=== PATIENT | male | born 1985 | race Caucasian/White ===

== ENCOUNTER 2023-01-18 11:29 | Outpatient (OUT) | payer BC, SELFPAY ==
[2023-01-18 12:17] LABS: Thyroid Stimulating Hormone 0.264 uIU/mL (0.358-3.740)
[2023-01-18 12:36] LABS: Free T4 1.21 ng/dL (0.76-1.46)
== END 2023-01-18 11:30 | disposition home or self-care (01) ==
LOC: LAB 11:32
PROVIDERS: PCP Family Medicine; Visit Provider Family Medicine
DX: E03.8 Other specified hypothyroidism (principal)
CPT/HCPCS: 36415; 84439; 84443

== ENCOUNTER 2023-07-07 06:23 | Outpatient (OUT) | payer BC, SELFPAY ==
[2023-07-07 07:35] LABS: Free T4 1.09 ng/dL (0.76-1.46)
[2023-07-07 07:38] LABS: Alanine Aminotransferase 38 U/L (16-63); Albumin Globulin Ratio 0.9; Albumin Level 3.1 g/dL (3.4-5.0); Alkaline Phosphatase 62 U/L (46-116); Anion Gap 10.6; Aspartate Amino Transferase 14 U/L (15-37); BUN Creatinine Ratio 27.1; Bilirubin Total 0.2 mg/dL (0.2-1.0); Calcium 8.5 mg/dL (8.5-10.1); Carbon Dioxide 29.8 mmol/L (21.0-32.0); Chloride 107 mmol/L (98-107); Chol HDL Ratio 3.4; Cholesterol 128 mg/dL (<=200); Estimated GFR (African America >60 (>=60); Estimated GFR (Non-African Ame >60 (>=60); Globulin 3.4 g/dL; Glucose 92 mg/dL (74-106); HDL Cholesterol 38 mg/dL (40-60); Potassium 4.4 mmol/L (3.5-5.1); Sodium 143 mmol/L (136-145); Thyroid Stimulating Hormone 1.785 uIU/mL (0.358-3.740); Total Protein 6.5 g/dL (6.4-8.2); Triglycerides 149 mg/dL (<=150); VLDL CHOLESTEROL 29.8 mg/dL
== END 2023-07-07 06:24 | disposition home or self-care (01) ==
LOC: LAB 06:24
PROVIDERS: PCP Family Medicine; Visit Provider Family Medicine
DX: E03.9 Hypothyroidism, unspecified (principal); E78.2 Mixed hyperlipidemia
CPT/HCPCS: 36415; 80053; 80061; 84439; 84443

== ENCOUNTER 2024-07-31 08:48 | Outpatient (OUT) | payer OTHER, SELFPAY ==
--- OUTSIDE RECORDS SUMMARY | 2024-07-31 08:53 | XMS_ITS | CCD ---
Author Organization [facility] Care Team Providers Care Survey Engineer Name Role Phone Ellen Barclay Unavailable Unavailable KEISHA, ELLEN Unavailable Unavailable Kovesdi, Ellen Unavailable Unavailable Kovesdi, Ellen Unavailable Unavailable KEISHA, ELLEN Unavailable Unavailable Kovesruperto, Ellen Unavailable Unavailable KEISHA, ELLEN Unavailable Unavailable DONNA LECHUGA AM Attending Unavailable DONNA LECHUGA AM Admitting Unavailable SELF, REFERRED Primary Care Unavailable JAMAL LUTZ Referring Unavailable MUNDO MODI Attending Unavailable MUNDO MODI Admitting Unavailable REQUEST, NONE LISTED Primary Care UnavailMUNDO Gandhi Attending Unavailable MUNDO MODI Admitting Unavailable REQUEST, NONE LISTED Primary Care UnavailMUNDO Gandhi Attending Unavailable MUNDO MODI Consulting Unavailable Courtney Cantu Unavailable Medications Current Medications Medication Drug Class(es) Dates Sig (Normalized) Sig (Original) amoxicillin 500 mg oral capsule (3 sources) Penicillin-class Antibacterial Start: 07-27-2024 take 1 capsule by mouth three times daily Amoxicillin 500 mg capsule Active 500 MG PO Three times daily 27 12July 27, 2024 12:00am Start: 07-01-2023 take 1 capsule by [facility] every eight hours Amoxicillin 500 MG 1 capsule Orally every 8 hrs for 5 day(s) Jun, Active predniSONE 20 mg oral tablet (1 source) Start: 07-01-2023 take 2 tablets by mouth every twenty-four hours predniSONE 20 MG 2 tablets Orally Once a day for 5 days Jun, Active sildenafil 50 mg oral tablet (12 sources) Phosphodiesterase 5 Inhibitor Start: 05-04-2024 End: 07-29-2024 take 1 tablet by mouth once daily as needed Sildenafil 50 mg tablet Active 0 .ROUTE .COMPLEX July 29, 2024 3:53pm TAKE 1 TABLET BY MOUTH ONCE A DAY 30 MINUTES TO 4 HOURS BEFORE SEXUAL ACTIVITY NEEDED Start: 08-21-2023 End: 05-04-2024 Sildenafil 50 mg tablet Disc ontinued 50 MG PO Daily as needed for sexual activity October 02, 2023 3:17pm May 04, 2024 8:30am administer 30 minutes to 4 hours before activity Sildenafil Citra te 50 mg TAKE ONE TABLET BY MOUTH ONCE DAILY NEEDED FOR 30 DAYS for 30 Active Completed/Discontinued Medications Medication Drug Class(es) Dates Sig (Normalized) Sig (Original) atorvastatin 20 mg oral tablet (20 sources) HMG-CoA Reductase Inhibitor Start: 12-22-2023 End: 07-21-2024 take 1 tablet by mouth once daily Atorvastatin 20 mg tablet Discontinued 0 .ROUTE .COMPLEX March 22, 2024 9:33pm July 21, 2024 8:31am TAKE 1 TABLET BY MOUTH EVERY DAY Start: 08-26-2023 End: 12-22-2023 take 1 tablet by mouth once daily Atorvastatin 20 mg tablet Discontinued 20 MG PO Daily August 26, 2023 8:32am December 22, 2023 8:59am Start: 08-21-2023 End: 08-26-2023 take 1 tablet by mouth once daily Atorvastatin 20 mg tablet Discontinued 0 .ROUTE .COMPLEX August 21, 2023 11:02am August 26, 2023 8:33am TAKE ONE TABLET BY MOUTH ONCE DAILY FOR 30 DAYS Start: 08-21-2023 End: 08-26-2023 take 1 tablet by mouth once daily Atorvastatin Discontinued 0 .ROUTE .COMPLEX August 21, 2023 12:02pm August 26, 2023 9:33am TAKE ONE TABLET BY MOUTH ONCE DAILY FOR 30 DAYS Start: 08-21-2023 End: 08-21-2023 take 1 tablet by mouth once daily Atorvastatin 20 mg tablet Discontinued 20 MG PO Daily August 20, 2023 11:00pm August 21, 2023 11:02am Start: 11-13-2022 take 1 tablet by [facility] every twenty-four hours Atorvastatin Calcium 20 MG 1 tablet Orally Once a day for 30 days Nov, Active levothyroxine sodium 0.088 mg oral tablet (20 sources) l-Thyroxine Start: 12-22-2023 End: 07-21-2024 Levothyroxine 88 mcg tablet Discontinued 0 .ROUTE .COMPLEX March 22, 2024 9:33pm July 21, 2024 8:31am TAKE 1 TABLET EACH MORNING ON AN EMPTY STOMACH Start: 08-26-2023 End: 12-22-2023 take 1 tablet by mouth once daily Levothyroxine 88 mcg tablet Discontinued 88 MCG PO Daily August 26, 2023 8:32am December 22, 2023 8:59am Start: 08-21-2023 End: 08-26-2023 take 1 tablet by mouth once daily in the morning Levothyroxine 88 mcg tablet Discontinued 0 .ROUTE .COMPLEX August 21, 2023 11:02am August 26, 2023 8:33am TAKE ONE TABLET BY MOUTH ONCE DAILY IN THE MORNING ON AN EMPTY STOMACH Start: 08-21-2023 End: 08-21-2023 take 1 tablet by mouth once daily Levothyroxine 88 mcg tablet Discontinued 88 MCG PO Daily August 20, 2023 11:00pm August 21, 2023 11:02am Start: 11-13-2022 take 1 tablet by [facility] once daily in the morning Levothyroxine Sodium 100 MCG 1 tablet in the morning on an empty stomach Orally Once a day for 30 days Nov, Active take 1 tablet by [facility] once daily in the morning Levothyroxine Sodium 88 MCG 1 tablet in the morning on an empty stomach Orally Once a day for 90 days Active take 1 tablet by [facility] once daily in the morning Levothyroxine Sodium 88 MCG 1 tablet in the morning on an empty stomach Orally Once a day for 90 days Active meloxicam 15 mg oral tablet (16 sources) Nonsteroidal Anti-inflammatory Drug Start: 10-02-2023 End: 05-31-2024 take 1 tablet by mouth once daily Meloxicam 15 mg tablet Discontinued 0 .ROUTE .COMPLEX March 01, 2024 12:12pm May 31, 2024 9:31pm TAKE 1 TABLET BY MOUTH EVERY DAY FOR 30 DAYS Start: 07-28-2023 End: 07-29-2024 take 1 tablet by mouth once daily Meloxicam 15 mg tablet Discontinued 15 MG PO Daily August 20, 2023 11:00pm October 02, 2023 3:18pm Start: 07-01-2023 take 1 tablet by [facility] every twenty-four hours Meloxicam 15 MG 1 tablet Orally Once a day for 30 day(s) Jun, Active ondansetron 4 mg disintegrating oral tablet (3 sources) Serotonin-3 Receptor Antagonist Start: 10-20-2023 End: 07-29-2024 take 1 tablet by mouth every eight hours as needed for nausea and vomiting Ondansetron 4 mg tablet,disintegrating Discontinued 4 MG PO Q8H as needed for nausea and vomiting October 19, 2023 11:00pm July 29, 2024 3:52pm Problems Problem Classification Problem Date Documented Date Episodic/Chronic Cardiac dysrhythmias (2 sources) Palpitations; Translations: [Palpitations] Onset: 11-01-2022 Episodic Conditions associated with dizziness or vertigo (2 sources) Dizziness and giddiness; Translations: [Dizziness and giddiness] Onset: 11-01-2022 Episodic Coronary atherosclerosis and other heart disease (7 sources) Coronary arteriosclerosis; Translations: [Atherosclerotic heart disease of [place] coronary artery without angina pectoris] Chronic Disorders of lipid metabolism (10 sources) Mixed hyperlipidemia; Translations: [Mixed hyperlipidemia] Chronic Disorders of teeth and jaw (2 sources) Periapical abscess without sinus; Translations: [Other specified disorders of teeth and supporting structures] Episodic Essential hypertension (9 sources) Essential hypertension; Translations: [Essential (primary) hypertension] Chronic Noninfectious gastroenteritis (2 sources) Gastroenteritis; Translations: [Noninfective gastroenteritis and colitis, unspecified] 10-20-2023 Episodic Nonspecific chest pain (2 sources) Chest pain, unspecified; Translations: [Chest pain, unspecified] Onset: 11-01-2022 Episodic Other connective tissue disease (1 source) Myalgia, other site Episodic Other lower respiratory disease (2 sources) Shortness of breath; Translations: [Shortness of breath] Onset: 11-01-2022 Episodic Other male genital disorders (4 sources) Male erectile dysfunction, unspecified; Translations: [Erectile dysfunction, unspecified erectile dysfunction type] Chronic Residual codes; unclassified (2 sources) Sleep apnea, unspecified; Translations: [Sleep apnea, unspecified] Onset: 11-01-2022 Chronic Residual codes; unclassified (6 sources) Obstructive sleep apnea syndrome; Translations: [Obstructive sleep apnea (adult) (pediatric)] Chronic Residual codes; unclassified (1 source) Obstructive sleep apnea (adult) (pediatric) Chronic Thyroid disorders (16 sources) Acquired hypothyroidism; Translations: [Hypothyroidism, unspecified] Chronic Results Test Name Value Interpretation Reference Range Facility 36on 11-06-2022 36 Please let him know his blood counts, kidney/liver function were all normal. His cholesterol levels shows his bad cholesterol or LDL was at 125 which is above goal of <100 for primary prevention. Recommend limiting processed foods, eating low fat/heart healthy diet, and getting into an exercise routine after his sx's improve and he undergoes testing that we ordered. His TSH level which is part of his thyroid function is low and may require further investigation that he needs to see a PCP for. Please be sure he has scheduled an appt to get into a PCP as I had given him a list of providers to try to get into and fax results to them. Thank you! Normal [facility] Telephoneon 11-05-2022 Telephone [id number] BritIván M 1985 M Date Provider Department Center 11/05/2022 MUNDO MACHADO [facility] Family History Problem Relation Age of Onset Heart attack Maternal Grandmother Heart attack Maternal Grandfather Family Status - Relation Status Age at Maternal Grandmother Maternal Grandfather Normal [facility] CBC AUTO DIFFon 11-02-2022 BASO # 0.0 103/ul Normal 0.0-0.1 [facility] Comment on above: Performed By: #### C BC #### [facility] [address] [address] [address] Nicole Bullard Basophils/100 WBC (Bld) 0.5 % Normal 0.2-2.[address] [facility] Comment on above: Performed By: #### C BC #### [facility] [address] [address] [address] Nicole Bullard EO # 0.2 103/ul Normal 0.0-0.[address] [facility] Comment on above: Performed By: #### C BC #### [facility] [address] [address] [address] Nicole Bullard Eosinophils/100 WBC (Bld) 2.6 % Normal 0.9-7.0 [facility] Comment on above: Performed By: #### C BC #### [facility] [address] [place] [address] Dr. Nicole Bullard Erythrocyte distribution width (RBC) [Ratio] 13.0 % Normal 11.0-15.[address] [facility] Comment on above: Performed By: #### C BC #### [facility] [address] [place] [address] Dr. Nicole Bullard Hematocrit (Bld) [Volume fraction] 46.5 % Normal 42.0-54.0 [facility] Comment on above: Performed By: #### C BC #### [facility] [address] [place] [address] Dr. Nicole Bullard Hemoglobin (Bld) [Mass/Vol] 15.4 g/dL Normal 14.0-18.[address] [facility] Comment on above: Performed By: #### C BC #### [facility] [address] [place] [address] Dr. Nicole Bullard IG # 0.02 10e3/ul Normal 0.00-0.03 [facility] Comment on above: Performed By: #### C BC #### [facility] [address] [place] [address] Dr. Nicole Bullard IG % 0.2 % Normal 0.0-0.5 [facility] Comment on above: Performed By: #### C BC #### [facility] [address] [place] [address] Dr. Nicole Bullard LYMPH # 2.4 103/ul Normal 1.2-3.[address] [facility] Comment on above: Performed By: #### C BC #### [facility] [address] [place] [address] Dr. Nicole Bullard Lymphocytes/100 WBC (Bld) 28.9 % Normal 20.5-60.[address] [facility] Comment on above: Performed By: #### C BC #### [facility] [address] [place] [address] Dr. Nicole Bullard MANUAL DIFF REQ NO Normal [facility] Comment on above: Performed By: #### C BC #### [facility] [address] [place] [address] Dr. Nicole Bullard MCH (RBC) [Entitic mass] 30.4 pg Normal 25.9-34.0 [facility] Comment on above: Performed By: #### C BC #### [facility] [address] [place] [address] Dr. Nicole Bullard MCHC (RBC) [Mass/Vol] 33.1 g/dL Normal 29.9-35.2 [facility] Comment on above: Performed By: #### C BC #### [facility] [address] [place] [address] Dr. Nicole Bullard MCV (RBC) [Entitic vol] 91.7 fL Normal 80.0-94.0 [facility] Comment on above: Performed By: #### C BC #### [facility] [address] [place] [address] Dr. Nicole Bullard MONO # 0.7 103/ul Normal 0.3-0.8 [facility] Comment on above: Performed By: #### C BC #### [facility] [address] [place] [address] Dr. Nicole Bullard Monocytes/100 WBC (Bld) 7.8 % Normal 1.7-12.0 [facility] Comment on above: Performed By: #### C BC #### [facility] [address] [place] [address] Dr. Nicole Bullard NEUT # 5.0 103/ul Normal 1.4-6.5 [facility] Comment on above: Performed By: #### C BC #### [facility] [address] [place] [address] Dr. Nicole Bullard Neutrophils/100 WBC (Bld) 60.0 % Normal 43.0-75.[address] [facility] Comment on above: Performed By: #### C BC #### [facility] [address] [place] [address] Dr. Nicole Bullard Platelet mean volume (Bld) [Entitic vol] 10.2 fL Normal 9.5-13.5 [facility] Comment on above: Performed By: #### C BC #### [facility] [address] [place] [address] Dr. Nicole Bullard PLT 197 103/ul Normal 150-450 [facility] Comment on above: Performed By: #### C BC #### [facility] [address] [place] [address] Dr. Nicole Bullard RBC 5.07 106/ul Normal 4.70-6.10 [facility] Comment on above: Performed By: #### C BC #### [facility] [address] [place] [address] Dr. Nicole Bullard WBC 8.4 103/ul Normal 4.0-11.0 [facility] Comment on above: Performed By: #### C BC #### [facility] [address] [place] [address] Dr. Nicole Bullard FREE T4on 11-02-2022 Free T4 [Mass/Vol] 1.01 ng/dL Normal 0.76-1.46 [facility] Comment on above: Performed By: #### F T4 #### [facility] [address] [place] [address] Dr. Nicole Bullard GLYCOHEMOGLOBIN A1Con 2022 ADA RECOMMENDATION SEE BELOW Normal [facility] Comment on above: Result Comment: ADA RECOMMENDED LIMIT 4.0 - 6.0 ADA THERAPEUTIC TARGET < 7.0 ACTION SUGGESTED > 7.0 Performed By: #### A 1C #### [facility] [address] [place] [address] Dr. Nicole Bullard Glucose [Mass/Vol] 126 mg/dL Normal [facility] Comment on above: Performed By: #### A 1C #### [facility] [address] [place] [address] Dr. Nicole Bullard HbA1c (Bld) [Mass fraction] 6.0 % Normal 4.5-6.2 [facility] Comment on above: Performed By: #### A 1C #### [facility] [address] [place] [address] Dr. Nicole Bullard LIPID PROFILEon 11-02-2022 CHOL-HDL RATIO NORM SEE BELOW Normal [facility] Comment on above: Result Comment: 3.3 - 4.4 LOW RISK 4.4 - 7.1 AVERAGE RISK 7.1 - 11.0 MODERATE RISK >11.0 HIGH RISK Performed By: #### T SH, CMP, LIPID, MG #### [facility] [address] [address] [address] Nicole Bullard Cholesterol [Mass/Vol] 185 mg/dL Normal <=200 [facility] Comment on above: Performed By: #### T SH, CMP, LIPID, MG #### [facility] [address] [address] [address] Nicole Bullard Cholesterol in HDL [Mass/Vol] 34 mg/dL Critically low 40-60 [facility] Comment on above: Performed By: #### T SH, CMP, LIPID, MG #### [facility] [address] [place] [address] Dr. Nicole Bullard Cholesterol in LDL [Mass/Vol] 125.8 mg/dL Normal [facility] Comment on above: Performed By: #### T SH, CMP, LIPID, MG #### [facility] [address] [place] [address] Dr. Nicole Bullard Cholesterol.total/Cho lesterol in HDL [Mass ratio] 5.4 {ratio} Normal [facility] Comment on above: Performed By: #### T SH, CMP, LIPID, MG #### [facility] [address] [place] [address] Dr. Nicole Bullard HDL NORMAL > or = 60 mg/dl - LOW CARDIOVASCULAR RISK <40 mg/dl - HIGH CARDIOVASCULAR RISK Normal [facility] Comment on above: Performed By: #### T SH, CMP, LIPID, MG #### [facility] [address] [place] [address] Dr. Nicole Bullard LDL CALC NORMAL SEE BELOW Normal [facility] Comment on above: Result Comment: <100 mg/dl OPTIMAL 100 - 129 mg/dl NEAR OR ABOVE OPTIMAL 130 - 159 mg/dl BORDERLINE HIGH 160 - 189 mg/dl HIGH >190 mg/dl VERY HIGH Performed By: #### T SH, CMP, LIPID, MG #### [facility] [address] [address] [address] Nicole Bullard Triglyceride [Mass/Vol] 126 mg/dL Normal <=[address] [facility] Comment on above: Performed By: #### T SH, CMP, LIPID, MG #### [facility] [address] [address] [address] Nicole Bullard VLDL CALC 25.2 mg/dL Normal [facility] Comment on above: Performed By: #### T SH, CMP, LIPID, MG #### [facility] [address] [address] [address] Nicole Bullard MAGNESIUMon 11-02-2022 Magnesium [Mass/Vol] 2.1 mg/dL Normal 1.8-2.4 [facility] Comment on above: Performed By: #### T SH, CMP, LIPID, MG #### [facility] [address] [place] [address] Dr. Nicole Bullard PROF 14(COMP METB)on 023 Albumin [Mass/Vol] 3.8 g/dL Normal 3.4-5.0 [facility] Comment on above: Performed By: #### T SH, CMP, LIPID, MG #### [facility] [address] [place] [address] Dr. Nicole Bullard Albumin/Globulin [Mass ratio] 0.9 {ratio} Normal [facility] Comment on above: Performed By: #### T SH, CMP, LIPID, MG #### [facility] [address] [place] [address] Dr. Nicole Bullard ALP [Catalytic activity/Vol] 68 U/L Normal 46-116 [facility] Comment on above: Performed By: #### T SH, CMP, LIPID, MG #### [facility] [address] [place] [address] Dr. Nicole Bullard ALT [Catalytic activity/Vol] 55 U/L Normal 16-63 [facility] Comment on above: Performed By: #### T SH, CMP, LIPID, MG #### [facility] [address] [place] [address] Dr. Nicole Bullard Anion gap [Moles/Vol] 11.4 mmol/L Normal [facility] Comment on above: Performed By: #### T SH, CMP, LIPID, MG #### [facility] [address] [address] [address] Nicole Bullard AST [Catalytic activity/Vol] 28 U/L Normal 15-37 [facility] Comment on above: Performed By: #### T SH, CMP, LIPID, MG #### [facility] [address] [address] [address] Nicole Bullard Bilirubin [Mass/Vol] 0.4 mg/dL Normal 0.2-1.0 [facility] Comment on above: Performed By: #### T SH, CMP, LIPID, MG #### [facility] [address] [address] [address] Nicole Bullard Calcium [Mass/Vol] 9.2 mg/dL Normal 8.5-10.1 [facility] Comment on above: Performed By: #### T SH, CMP, LIPID, MG #### [facility] [address] [address] [address] Nicole Bullard Chloride [Moles/Vol] 103 mmol/L Normal 98-[address] [facility] Comment on above: Performed By: #### T SH, CMP, LIPID, MG #### [facility] [address] [address] [address] Nicole Bullard CO2 [Moles/Vol] 31.4 mmol/L Normal 21.0-32.0 [facility] Comment on above: Performed By: #### T SH, CMP, LIPID, MG #### [facility] [address] [address] [address] Nicole Bullard Creatinine [Mass/Vol] 0.89 mg/dL Normal 0.70-1.30 [facility] Comment on above: Performed By: #### T SH, CMP, LIPID, MG #### [facility] [address] [place] [address] Dr. Nicole Bullard EGFR-AF CANADIAN >60 Normal >=60 [facility] Comment on above: Performed By: #### T SH, CMP, LIPID, MG #### [facility] [address] [address] [address] Nicole Bullard EGFR-NON AF CANADIAN >60 Normal >=[address] [facility] Comment on above: Performed By: #### T SH, CMP, LIPID, MG #### [facility] [address] [address] [address] Nicole Bullard Globulin (S) [Mass/Vol] 4.0 g/dL Normal [facility] Comment on above: Performed By: #### T SH, CMP, LIPID, MG #### [facility] [address] [address] [address] Nicole Bullard Glucose [Mass/Vol] 104 mg/dL Normal 74-106 [facility] Comment on above: Performed By: #### T SH, CMP, LIPID, MG #### [facility] [address] [place] [address] Dr. Nicole Bullard Potassium [Moles/Vol] 4.8 mmol/L Normal 3.5-5.[address] [facility] Comment on above: Performed By: #### T SH, CMP, LIPID, MG #### [facility] [address] [address] [address] Nicole Bullard Protein [Mass/Vol] 7.8 g/dL Normal 6.4-8.2 [facility] Comment on above: Performed By: #### T SH, CMP, LIPID, MG #### [facility] [address] [place] [address] Dr. Nicole Bullard Sodium [Moles/Vol] 141 mmol/L Normal 136-145 [facility] Comment on above: Performed By: #### T SH, CMP, LIPID, MG #### [facility] [address] [place] [address] Dr. Nicole Bullard Urea nitrogen [Mass/Vol] 17.0 mg/dL Normal 7.0-18.0 [facility] Comment on above: Performed By: #### T SH, CMP, LIPID, MG #### [facility] [address] [place] [address] Dr. Nicole Bullard Urea nitrogen/Creatinine [Mass ratio] 19.1 mg/mg Normal [facility] Comment on above: Performed By: #### T SH, CMP, LIPID, MG #### [facility] [address] [address] [address] Nicole Bullard TSHon 11-02-2022 TSH 0.351 uIU/mL Critically low 0.358-3.740 [facility] Comment on above: Performed By: #### T SH, CMP, LIPID, MG #### [facility] [address] [address] [address] Nicole Bullard Office Visiton 11-01-2022 Follow-up visit [id number] Iván Perea 1985 M Date Provider Department Center 11/01/2022 MUNDO MACHADO [facility] Family History Problem Relation Age of Onset Heart attack Maternal Grandmother Heart attack Maternal Grandfather Family Status - Relation Status Age at Maternal Grandmother Maternal Grandfather Level of Service:[address] [place] OFFICE/OUTPATIENT ESTABLISHED MOD MDM 30-39 MIN Reason for Visit and Comments: Dizziness [[id number]] Normal [facility] Vital Signs Date Time Vital Sign Value Performing Clinician Facility 07-29-2024 15:25-0500 Body height 182.88 cm [facility] 07-29-2024 15:25-0500 Body mass index (BMI) [Ratio] 40.2 kg/m2 [facility] 07-29-2024 15:25-0500 Body weight 134.71 kg [facility] 07-29-2024 15:25-0500 Diastolic blood pressure 76 mm[Hg] [facility] 07-29-2024 15:25-0500 Heart rate 83 /min [facility] 07-29-2024 15:25-0500 Systolic blood pressure 126 mm[Hg] [facility] 07-27-2024 10:58-0500 Body height 182.88 cm [facility] 07-27-2024 10:58-0500 Body mass index (BMI) [Ratio] 40.4 kg/m2 [facility] 07-27-2024 10:58-0500 Body temperature 98 [degF] [facility] 07-27-2024 10:58-0500 Body weight 135.39 kg [facility] 07-27-2024 10:58-0500 Diastolic blood pressure 88 mm[Hg] [facility] 07-27-2024 10:58-0500 Heart rate 86 /min [facility] 07-27-2024 10:58-0500 Respiratory rate 18 /min [facility] 07-27-2024 10:58-0500 SaO2% (BldA) [Mass fraction] 99 % [facility] 07-27-2024 10:58-0500 Systolic blood pressure 160 mm[Hg] [facility] 10-20-2023 14:25-0400 Body height 179.07 cm [facility] 10-20-2023 14:25-0400 Body mass index (BMI) [Ratio] 40.3 kg/m2 [facility] 10-20-2023 14:25-0400 Body temperature 98.3 [degF] [facility] 10-20-2023 14:25-0400 Body weight 129.27 kg [facility] 10-20-2023 14:25-0400 Diastolic blood pressure 89 mm[Hg] [facility] 10-20-2023 14:25-0400 Heart rate 89 /min [facility] 10-20-2023 14:25-0400 Systolic blood pressure 139 mm[Hg] [facility] 07-01-2023 09:00-0500 Body height 179.07 cm Courtney Cantu Other [facility] [employer] Other 07-01-2023 09:00-0500 Body mass index (BMI) [Ratio] 41.5 kg/m2 Courtney Cantu Other [facility] [employer] Other 07-01-2023 09:00-0500 Body weight 133.09 kg Courtney Cantu Other [facility] Other 07-01-2023 09:00-0500 Diastolic blood pressure 85 mm[Hg] Courtney Cantu Other [facility] Other 07-01-2023 09:00-0500 Systolic blood pressure 143 mm[Hg] Courtney Cantu Other [facility] Other 01-23-2023 15:45-0400 Body height 179.07 cm Courtney Cantu Other [facility] Other 01-23-2023 15:45-0400 Body mass index (BMI) [Ratio] 42.15 kg/m2 Courtney Cantu Other [facility] Other 01-23-2023 15:45-0400 Body weight 135.17 kg Courtney Cantu Other [facility] Other 01-23-2023 15:45-0400 Diastolic blood pressure 79 mm[Hg] Courtney Cantu Other [facility] Other 01-23-2023 15:45-0400 Systolic blood pressure 114 mm[Hg] Courtney Cantu Other [facility] Other 12-12-2022 15:15-0400 Body height 179.07 cm Courtney Cantu Other [facility] Other 12-12-2022 15:15-0400 Body mass index (BMI) [Ratio] 42.26 kg/m2 Courtney Cantu Other [facility] Other 12-12-2022 15:15-0400 Body weight 135.54 kg Courtney Cantu Other [facility] Other 12-12-2022 15:15-0400 Diastolic blood pressure 92 mm[Hg] Courtney Cantu Other [facility] Other 12-12-2022 15:15-0400 Systolic blood pressure 136 mm[Hg] Courtney Cantu Other [facility] Other 11-12-2022 15:30-0400 Body height 179.07 cm Courtney Cantu Other [facility] Other 11-12-2022 15:30-0400 Body mass index (BMI) [Ratio] 42.43 kg/m2 Courtney Cantu Other [facility] Other 11-12-2022 15:30-0400 Body weight 136.08 kg Courtney Cantu Other [facility] Other 11-12-2022 15:30-0400 Diastolic blood pressure 77 mm[Hg] Courtney Cantu Other [facility] Other 11-12-2022 15:30-0400 Systolic blood pressure 124 mm[Hg] Courtney Cantu Other [facility] Other Encounters Encounter Date Encounter Type Care Provider Facility Start: 07-29-2024 End: 07-29-2024 ambulatory [facility] Work Phone: Start: 07-29-2024 End: 07-29-2024 Patient encounter procedure [facility] Work Phone: Start: 07-27-2024 End: 07-27-2024 ambulatory [facility] Work Phone: Start: 07-27-2024 End: 07-27-2024 Patient encounter procedure [facility] Work Phone: Start: 10-20-2023 End: 10-20-2023 ambulatory [facility] Work Phone: Start: 10-20-2023 End: 10-20-2023 Patient encounter procedure [facility] [employer] [facility] Work Phone: Start: 08-21-2023 Non-patient / Non-visit [facility] [facility] Work Phone: Start: 07-01-2023 End: 07-01-2023 ambulatory Courtney Cantu Other [facility] Other Start: 07-01-2023 Office outpatient vi sit 15 minutes Courtney Alondra [facility] Start: 02-05-2023 End: 02-05-2023 ambulatory Courtney Cantu Other [facility] Other Start: 02-05-2023 Telephone encounter Courtney Alondra [facility] Start: 01-23-2023 End: 01-23-2023 ambulatory Courtney Cantu Other [facility] Other Start: 01-23-2023 Office outpatient vi sit 15 minutes Courtney Alondra [facility] Start: 01-15-2023 End: 01-15-2023 ambulatory Courtney Alondra Other [facility] Other Start: 01-15-2023 Telephone encounter Courtney Alondra [facility] Start: 12-12-2022 End: 12-12-2022 ambulatory Courtney Alondra Other [facility] Other Start: 12-12-2022 Office outpatient vi sit 15 minutes Courtney Cantu [facility] Start: 11-12-2022 End: 11-12-2022 ambulatory Courtney Alondra Other [facility] Other Start: 11-12-2022 Office outpatient ne w 45 minutes Courtney Cantu [facility] Start: 11-06-2022 Encounter for genera l adult medical examination without abnormal findings MUNDO MODI [facility] Start: 11-02-2022 End: 11-03-2022 ambulatory MUNDO MODI Facility:[facility] Start: 11-02-2022 End: 11-03-2022 Encounter for general adult medical examination without abnormal findings MUNDO MODI Facility:[facility] Start: 11-01-2022 ambulatory MUNDO MODI [facility] Start: 11-01-2022 Encounter for genera l adult medical examination [facility]: 02-02-2022 ambulatory MUNDO MODI Facility :[facility] Start: 07-09-2017 End: 07-10-2017 Ambulatory Ellen Barclay Facility:[id number] Start: 02-03-2017 End: 02-04-2017 Ambulatory Ellen Barclay Facility:CD:[id number] Start: 01-18-2017 End: 01-21-2017 ambulatory DONNA LECHUGA Facility:[facility] Plan of Treatment Date Care Activity Detail Author Comprehensive metabo lic 1999 panel - Serum or Plasma [facility] enter [facility] Payers Date Payer Category Payer Self-pay 1985 Unknown [id number] 1985 Unknown [id number] 1983 Unknown [id number] 1961 Self-pay [id number] 1961 Unknown [id number] [facility] [id number] Private Health Insurance [employer] [id number] Social History Date Type Detail Facility Sex Assigned At [facility] Other Start: 07-01-2023 End: 07-01-2023 Tobacco smoking status NHIS Smoker (finding) [facility] Start: 1985 Sex Assigned At Male [facility] Start: 07-27-2024 End: 07-29-2024 Sex Male (finding) [facility] Clinical Notes 11-01-2022 to 07-27-2024 Note Date & Type Note Facility 07-27-2024 Evaluation note Diagnosis Onset Date Resolution Pain, dental noneactive July 10:50am [facility] Work Phone: 1(267) 165-997001-23-2024 Evaluation note* Encounter Date Diagnosis Assessment Notes Treatment Notes Treatment Clinical Notes Jun, Acquired hypothyroidism (ICD-10 - E03.9) Chronic problem - due for labs. Jun, Mixed hyperlipidemia (ICD-10 - E78.2) chronic problem, due for labs Jun, Lumbar muscle pain (ICD-10 - M79.18) Pt states muscle relaxers and steroids have worked for him in the past. Jun, Dental infection (ICD-10 - K04.7) pt has an appt next month [facility] Other 08-30-2023 Evaluation note* Encounter Date Diagnosis Assessment Notes Treatment Notes Treatment Clinical Notes Jan, Mixed hyperlipidemia (ICD-10 - E78.2) [facility] Other 08-17-2023 Evaluation note* Encounter Date Diagnosis Assessment Notes Treatment Notes Treatment Clinical Notes Jan, Acquired hypothyroidism (ICD-10 - E03.9) Discussed hypothyroidism in detail today. Discussed S/S of thyroid dysfunction, possible family history of thyroid disease, hyper vs hypo thyroidism and testing. Discussed diagnostic imaging and labs as needed as well as management with medication and titration schedule. Take medication as prescribed 1 hr before or 2 hrs after meals, in am. Jan, Erectile dysfunction, unspecified erectile dysfunction type (ICD-10 - N52.9) Trial medication and assess response. [facility] Other 08-09-2023 Evaluation note* Encounter Date Diagnosis Assessment Notes Treatment Notes Treatment Clinical Notes Jan, Other specified hypothyroidism (ICD-10 - E03.8) [facility] Other 07-06-2023 Evaluation note* Encounter Date Diagnosis Assessment Notes Treatment Notes Treatment Clinical Notes Dec, Essential (primary) hypertension (ICD-10 - I10) Primary concerns have resolved. Stay well hydrated in hot factory. Take medications. Have labs in late January. Dec, Acquired hypothyroidism (ICD-10 - E03.9) as above. [facility] Other 06-06-2023 Evaluation note* Encounter Date Diagnosis Assessment Notes Treatment Notes Treatment Clinical Notes Nov, CAD in [place] artery (ICD-10 - I25.10) Continue followup w cardiology Discussed healthy diet and exercise. Nov, Mixed hyperlipidemia (ICD-10 - E78.2) Begin medication based on lab result. Will reassess in 3 months with lipid panel and LFTs. Nov, ESTEPHANIA (obstructive sleep apnea) (ICD-10 - G47.33) Hx of ESTEPHANIA. Likely continues to have. Resistant to testing for this problem at this time. Will revisit in the future. Nov, Acquired hypothyroidism (ICD-10 - E03.9) Will assess labs and treat accordingly. Nov, Essential (primary) hypertension (ICD-10 - I10) Continue present meds. Encouraged healthy diet for weight loss. [facility] Other 05-26-2023 NotePatient here c/o lightheadedness, chest pain, and KOCH. He was last seen in September 2020. Smokes 1 PPD and THC in the evenings. His partner does say she witnesses apnea a couple nights a week. He has recently started to workout and be more active. Review of Systems Cardiovascular: Positive for chest pain, dyspnea on exertion, leg swelling and palpitations (with exertion). Respiratory: Positive for cough and wheezing. Neurological: Positive for dizziness and light-headedness. All other systems reviewed and are negative.[facility] 11-01-2022 [facility]Cardiovascular Medicine [facility] SUBJECTIVE Chief Complaint Patient presents with Dizziness Iván Perea is a 37 y.o. male here for follow-up. HPI PMHx: NSTEMI type II in the setting of dehydration and bronchitis - normal coronary arteries per 01/20/2017 cardiac cath, HTN, smoker, cocaine abuse (reports he's been sober for 4 years); ESTEPHANIA - he was told he had sleep apnea through [facility] FMHx: mother - CAD, DM Since last seen he did not have ECHO, sleep study, or lab work done. He c/o lightheadedness on days he doesn't sleep well and over exerts himself. 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 Fresh air and rest/relaxation can help. Seems to happen more when he feels more tired. He can feel some fluttering in his chest, chest tightness and heavy breathing during these episodes. Happening once or twice a week. He will get some dizziness and headaches at the end of the day when driving home. He has been diagnosed with ESTEPHANIA in the past but he does not currently use a CPAP. He reports in the middle of the night he sits up gasping for air. He often wakes up feeling like he has acid in the back of his throat. He use to take nexium, he hasn't taken anything for some time. Just taking tums as needed. His significant other notes that he does snore. He is drinking about 6-8 bottles of water a day. He continues to smoke cigarettes. He also smokes marijuana in the evenings. Him and his fiance plan to get at the end of this summer. Patient Active Problem List Diagnosis Acute non-ST segment elevation myocardial infarction (CMS/HCC) Cigarette smoker Traumatic amputation of finger Past Medical History: Diagnosis Date Coronary artery disease Myocardial infarction (CMS/HCC) PND (paroxysmal nocturnal dyspnea) Sleep apnea untreated Family History Problem Relation Name Age of Onset Heart attack Maternal Grandmother Heart attack Maternal Grandfather Social History Tobacco Use Smoking status: Every Day Packs/day: 1.00 Types: Cigarettes Substance Use Topics Drug use: Yes Types: Marijuana No Known Allergies ROS Cardiovascular: Positive for chest pain, dyspnea on exertion, leg swelling and palpitations (with exertion). Respiratory: Positive for cough and wheezing. Neurological: Positive for dizziness and light-headedness. All other systems reviewed and are negative. OBJECTIVE Visit Vitals BP 141/86 (BP Location: Left arm, Patient Position: Standing) Pulse 70 Ht 1.829 m (6') Wt (!) 137 kg (301 lb) SpO2 98% BMI 40.82 kg/m??? Smoking Status Every Day BSA 2.64 m??? Medications: Current Outpatient Medications: aspirin 81 mg EC tablet, Take 1 tablet every day by oral route., Disp: , Rfl: meclizine (Antivert) 12.5 mg tablet, Take 1 tablet (12.5 mg) by mouth if needed in the morning, at noon, and at bedtime for dizziness for up to 10 days., Disp: 30 tablet, Rfl: 0 Physical Exam Constitutional: Appearance: Normal appearance. He is obese. HENT: Head: Normocephalic and atraumatic. Right Ear: External ear normal. Left Ear: External ear normal. Eyes: Extraocular Movements: Extraocular movements intact. Pupils: Pupils are equal, round, and reactive to light. Neck: Vascular: No carotid bruit. Cardiovascular: Rate and Rhythm: Normal rate and regular rhythm. Pulses: Normal pulses. Heart sounds: Normal heart sounds. Pulmonary: Effort: Pulmonary effort is normal. Breath sounds: Normal breath sounds. Abdominal: General: Bowel sounds are normal. Palpations: Abdomen is soft. Musculoskeletal: General: Normal range of motion. Cervical back: Neck supple. Right lower leg: No edema. Left lower leg: No edema. Skin: General: Skin is warm and dry. Neurological: General: No focal deficit present. Mental Status: He is alert and oriented to person, place, and time. Psychiatric: Mood and Affect: Mood normal. Behavior: Behavior normal. Thought Content: Thought content normal. Judgment: Judgment normal. Labs: 02/11/2021 Hgb 14.3, WBC 9.3, plt 180 Cr 1.04, BUN 15, eGFR 80, K 4, Na 141 Testing/Procedures: CTA chest 09/12/20: no PE, clear lungs EKG 09/12/20: SR, no ischemia Cardiac cath 01/20/2017 Normal coronary arteries, NSTEMI type II ECHO () Mild concentric LVH LA appears mildly dilated EF 55-60% RWMA cannot be excluded due to limited visualization ASSESSMENT/PLAN: Diagnosis Plan 1. Dizziness Comprehensive metabolic panel Magnesium TSH3 Reflex to FT4 Holter monitor - 48 hour Transthoracic echo (TTE) complete Hemoglobin A1c meclizine (Antivert) 12.5 mg tablet 2. Chest pain, unspecified type ECG 12 lead Holter monitor - 48 hour Transthoracic echo (TTE) complete 3. Adult general medical exam CBC Comprehensive metabolic panel Magnesium TSH3 Reflex to FT4 Lipid panel Hemoglobin A1c 4. Pa (more content not included)...[facility] Evaluation noteNo assessment information availableZanesville [facility] Work Phone: History general Narrative - Reported* Type Description Date Medical History 2016 Surgical History T & A Surgical History finger surgery, left hand 3rd d igit 2013 Surgical History Heart Cath 2017 [facility] Other History general Narrative - Reported* Type Description Date Medical History [place] - 2017 Surgical History T & A Surgical History finger surgery, left hand 3rd d igit 2013 Surgical History Heart Cath 2016 Hospitalization History SEE SURGICAL HX [facility] Other Summary Purpose Family History Relationship Condition Age at Onset Recorded Date/T iraida Not Specified Diabetes mellitus Unknown Heart disease Unknown Relationship Condition Age at Onset Recorded Date/T iraida mother Diabetes mellitus Unknown Heart disease Unknown Advance Directives Advance Directive Response Recorded Date/ Time Advance Directives No February 06, 2017 1:41pm Advance Directive Response Recorded Date/ Time Advance Directives No February 06, 2017 12:41pm Chief Complaint and Reason for Visit Chief Complaint Amb Documentation Chief Complaint Admit Date Tooth pain July 27, 2024 10:50am Chief Complaint Admit Date Tooth pain July 27, 2024 10:50am Med f/u July 29, 2024 3:15pm Reason for Visit Admit Date Pain, dental July 27, 2024 10:50am Additional Source Comments (unrecognized sect ion and content) No Status Records FoundNo Status Records FoundNo Status Records FoundNo Status Records Found INFORMATION SOURCE (unrecogn ized section and content) DATE CREATED AUTHOR 12/16/2017 [facility] DATE CREATED AUTHOR AUTHOR'S ORGANIZ ATION 03/02/2021 [facility] DATE CREATED AUTHOR AUTHOR'S ORGANIZ ATION 11/17/2022 [facility] DATE CREATED AUTHOR AUTHOR'S ORGANIZ ATION 11/17/2022 [facility] REASON FOR VISIT (unrecogniz ed section and content) CHECK UPcheck upmessageLab D iscussionRefillCheck Up Care Teams (unrecognized sec tion and content) Team Status: Active Member Role Status Dates Courtney Cantu MD Primary Care Provider Active Team Status: Inactive Member Role Status Dates Courtney Cantu MD Primary Care Provider Active Start: July 27, 2024 End: July 27, 2024 Lashanda Damian APRN Attending Provider Active Start: July 27, 2024 End: July 27, 2024 Team Status: Active Member Role Status Dates PHYSICIAN NO FAMILY Primary Care Provider Active Start: August 21, 2023 ANDREAS Ruiz Attending Provider Active Start : August 21, 2023 Team Status: Inactive Member Role Status Dates Courtney Cantu MD Primary Care Provide r, Attending Provider Active Start: October 20, 2023 End: October 20, 2023 Team Status: Inactive Member Role Status Dates Courtney Cantu MD Primary Care Provide r, Attending Provider Active Start: July 29, 2024 End: July 29, 2024 Goals (unrecognized section and content) Goals may be documented in a n alternate section FOR RECORDS PERTAINING TO PATIENTS WHO ARE OR HAVE BEEN ENROLLED IN A CHEMICAL DEPENDENCY/SUBSTANCEABUSE PROGRAM, SOME INFORMATION MAY BE OMITTED. This clinical summary was aggregated from multiple sources. Caution should be exercised in using it in the provision of clinical care. This summary normalizes information from multiple sources, and as a consequence, information in this document may materially change the coding, format and clinical context of patient data. In addition, data may be omitted in some cases. CLINICAL DECISIONS SHOULD BE BASED ON THE PRIMARY CLINICAL RECORDS. [employer] provides no warranty or guarantee of the accuracy or completeness of information in this document.
[2024-07-31 09:02] LABS: Basophils Percent Auto 0.6 % (0.2-2.0); Eosinophils Absolute Auto 0.2 10^3/uL (0.0-0.7); Eosinophils Percent Auto 2.8 % (0.9-7.0); Hematocrit 45.3 % (42.0-54.0); Hemoglobin 14.8 g/dL (14.0-18.0); Immature Granulocytes Abs Auto 0.01 10^3/uL (0.00-0.03); Immature Granulocytes Pct Auto 0.1 % (0.0-0.5); Lymphocytes Absolute Auto 2.1 10^3/uL (1.2-3.8); Lymphocytes Percent Auto 30.1 % (20.5-60.0); Mean Corpuscular HGB Conc 32.7 g/dL (29.9-35.2); Mean Corpuscular Hemoglobin 30.3 pg (25.9-34.0); Mean Corpuscular Volume 92.6 fL (80.0-94.0); Mean Platelet Volume 10.3 fL (9.5-13.5); Monocytes Absolute Auto 0.6 10^3/uL (0.3-0.8); Monocytes Percent Auto 8.5 % (1.7-12.0); Neutrophils Absolute Auto 4.1 10^3/uL (1.4-6.5); Neutrophils Percent Auto 57.9 % (43.0-75.0); Platelet Count 186 10^3/uL (150-450); Red Blood Count 4.89 10^6/uL (4.70-6.10); Red Cell Distribution Width 12.6 % (11.0-15.0)
[2024-07-31 09:30] LABS: Creatinine Urine Random 211.95 mg/dL (20.00-300.00); Microalbum Creatinine Ratio Ur 8.4 mg/g (0.0-29.9); Microalbumin Urine Random 1.8 mg/dL (<=30.0)
[2024-07-31 09:42] LABS: Alanine Aminotransferase 30 U/L (16-63); Albumin Level 3.6 g/dL (3.4-5.0); Alkaline Phosphatase 67 U/L (46-116); Anion Gap 9.8; Aspartate Amino Transferase 21 U/L (15-37); BUN Creatinine Ratio 26.1; Bilirubin Total 0.4 mg/dL (0.2-1.0); Calcium 9.1 mg/dL (8.5-10.1); Carbon Dioxide 29.8 mmol/L (21.0-32.0); Chloride 107 mmol/L (98-107); Cholesterol 135 mg/dL (<=200); Estimated GFR (African America >60 (>=60 mL/min/1.73m^2); Estimated GFR (Non-African Ame >60 (>=60 mL/min/1.73m^2); Globulin 3.5 g/dL; Glucose 101 mg/dL (74-106); HDL Cholesterol 34 mg/dL (40-60); Potassium 4.6 mmol/L (3.5-5.1); Sodium 142 mmol/L (136-145); TSH W/ REFLEX FT4 0.398 uIU/mL (0.358-3.740); Total Protein 7.1 g/dL (6.4-8.2); Triglycerides 73 mg/dL (<=150); VLDL CHOLESTEROL 14.6 mg/dL
[2024-07-31 10:26] LABS: Free T4 1.13 ng/dL (0.76-1.46)
== END 2024-07-31 08:49 | disposition home or self-care (01) ==
LOC: LAB 08:50
PROVIDERS: PCP Family Medicine; Visit Provider Family Medicine
DX: E78.2 Mixed hyperlipidemia (principal); I10 Essential (primary) hypertension; E03.9 Hypothyroidism, unspecified
CPT/HCPCS: 36415; 80053; 80061; 82043; 82570; 84439; 84443; 85025